=== PATIENT | female | born 1980 | race Caucasian/White ===

== ENCOUNTER 2020-09-06 10:56 | Outpatient (REF) | payer OTHER, SELFPAY ==
--- NOTE | 2020-09-06 09:30 | PAPFT_PTH ---
PATIENT: Gilda Morgan LOC: [facility] U#:[id number] AGE/SX: 39/F ROOM: RE09/06/[address]: Fadia Jones : 1980 BED: DIS: 09/06/2020 SPEC #: [id number] RECD: 09/06/20 18:12 STATUS: RODRIGO REAna #: [id number] JELENA: 09/06/20 09:[address]: Fadia Jones DEPT: [facility] Cytology RECD BY: Vanessa Magallanes ENTERED: 09/06/20 18:12 SP TYPE: PAPFT OTHR DR: Missy Segundo Tissues: 1 - CX/ENDOCX FOR PAP SMEARS Procedures: PAP THIN PREP/UVM Screening HPV DNA PROBE Comments: [id number]
== END 2020-09-06 10:57 | disposition home or self-care (01) ==
LOC: NCHCN 10:56
PROVIDERS: PCP Nurse Practitioner Family; Visit Provider Nurse Practitioner
DX: Z12.4 Encounter for screening for malignant neoplasm of cervix (principal); Z00.00 Encounter for general adult medical examination without abnormal findings; Z11.51 Encounter for screening for human papillomavirus (HPV)
CPT/HCPCS: 88142; 87624

== ENCOUNTER 2022-05-17 08:24 | Outpatient (REF) | payer MEDICAID, SELFPAY ==
[2022-05-17 14:58] LABS: HCT 39.9 % (36.0-46.0); HGB 12.6 g/dL (11.2-15.7); MCH 30.2 pg (27.0-33.0); MCHC 31.6 % (32.0-36.0); MCV 96 fL (80-95); MPV 9.8 fL (8.0-11.0); Platelet Count 269 10^3/uL (130-400); RBC 4.17 10^6/uL (3.93-5.22); RDW 11.6 % (11.7-14.6); RDW-SD 40.9 fL; WBC 7.73 10^3/uL (4.4-10.8)
[2022-05-17 16:11] LABS: Anion Gap 6.6 mmol/L (3-11); BUN 10 mg/dL (7-18); CO2 26.4 mmol/L (21.0-32.0); CREATININE 0.8 mg/dL (0.55-1.02); Calcium 8.9 mg/dL (8.5-10.1); Calculated LDL 92 mg/dL (<100); Chloride 105 mmol/L (98-107); Cholesterol 164 mg/dL (<200); Glucose 89 mg/dL (74-106); HDL Cholesterol 65 mg/dL (40-60); Potassium 4.3 mmol/L (3.5-5.1); Sodium 138 mmol/L (136-145); Triglyceride 38 mg/dL (<150)
== END 2022-05-17 08:25 | disposition home or self-care (01) ==
LOC: NCHCN 08:24
PROVIDERS: PCP Nurse Practitioner Family; Visit Provider Nurse Practitioner Family
DX: Z00.00 Encounter for general adult medical examination without abnormal findings (principal); Z13.220 Encounter for screening for lipoid disorders
CPT/HCPCS: 80048; 80061; 85027

== ENCOUNTER 2024-01-17 16:52 | Outpatient (CLI) | payer MEDICAID, SELFPAY ==
[2024-01-21 09:42] LABS: Anaplasma phagocytophilum Negative (Negative); B. miyamotoi PCR Negative (Negative); Babesia divergens/MO-1 Negative (Negative); Babesia duncani Negative (Negative); Babesia microti Negative (Negative); Ehrlichia chaffeensis Negative (Negative); Ehrlichia ewingii/canis Negative (Negative); Ehrlichia muris eauclairensis Negative (Negative)
== END 2024-01-17 16:53 | disposition home or self-care (01) ==
LOC: LBO 16:52
PROVIDERS: PCP Nurse Practitioner Family; Visit Provider Nurse Practitioner Family
DX: W57.XXXA Bitten or stung by nonvenomous insect and other nonvenomous arthropods, initial encounter (principal); S80.261A Insect bite (nonvenomous), right knee, initial encounter
CPT/HCPCS: 36415; 87798

== ENCOUNTER → 2024-02-04 02:43 | Outpatient (CLI) | payer MEDICAID, SELFPAY ==
--- NOTE | 2024-02-04 | DI.MRI_ITS ---
Exam(s) MR PELVIS WO MR LOWER JOINT RT WO EXAM: MR PELVIS WO CLINICAL HISTORY: Rt hip pain at iliac crest and SI jt rt side with sciatic nerve irritation TECHNIQUE: Multiplanar multisequence MRI of Pelvis was performed COMPARISON: MR MR LOWER JOINT RT WO from 02/04/2024 FINDINGS: Bones: There is no fracture or contusion pattern. No bone marrow edema is seen. Joints: No significant joint effusion or gross labral defect is present. The SI joints and symphysis pubis are well maintained. No abnormal signal within. Musculotendinous structures: Musculotendinous structures demonstrate no abnormality. Intrapelvic structures demonstrate no significant abnormality. IMPRESSION: Normal MRI examination of the pelvis, right hip and sacroiliac joints.. DATA REPOSITORY:
--- NOTE | 2024-02-04 | DI.MRI_ITS ---
Exam(s) MR LUMBAR SPINE WO EXAM: MR LUMBAR SPINE WO CLINICAL HISTORY: Low back pain, M54.50, no improvement 12 weeks PT. TECHNIQUE: Multiplanar multisequence MRI of the Lumbar spine was performed. COMPARISON: No exams were available for comparison FINDINGS: Bones: The last intervertebral disc space is designated the L5/S1 level for the numbering purpose of this ex amination. The vertebral body heights are well maintained. Alignment: Unremarkable. The marrow signal characteristics are unremarkable. Cord: The conus tip ends at the T12 level. It is of normal size and signal intensity. T12-L1: No focal disc herniation is present. No central spinal canal stenosis.No neural foraminal st enosis. L1-2: No focal disc herniation is present. No central spinal canal stenosis.No neural foraminal sten osis. L2-3: No focal disc herniation is present. No central spinal canal stenosis.No neural foraminal quirino nosis. L3-4: No focal disc herniation is present. No central spinal canal stenosis.No neural foraminal quirino nosis. L4-5: No focal disc herniation is present. No central spinal canal stenosis.No neural foraminal sten osis. L5-S1: No focal disc herniation is present. No central spinal canal stenosis.No neural foraminal st enosis. 5 millimeter right-sided nerve root sheath cyst involving the right S1 nerve root. The visualized SI joints and sacrum are unremarkable. Soft tissues: The paraspinal soft tissues are unremarkable. IMPRESSION: 5 millimeter right nerve root sheath cyst at the L5-S1 level. No evidence of disc herniation, significant spinal stenosis or neuroforaminal narrowing. DATA REPOSITORY:
== END ==
PROVIDERS: PCP Nurse Practitioner Family; Visit Provider Nurse Practitioner Family
DX: M53.3 Sacrococcygeal disorders, not elsewhere classified (principal); M54.50 Low back pain, unspecified
CPT/HCPCS: 73721; 72148; 72195

== ENCOUNTER 2025-05-19 11:05 | Outpatient (REF) | payer MEDICAID, SELFPAY ==
[2025-05-19 15:41] LABS: HCT 41.3 % (36.0-46.0); HGB 13.2 g/dL (11.2-15.7); MCH 30.2 pg (27.0-33.0); MCHC 32.0 % (32.0-36.0); MCV 95 fL (80-95); MPV 9.9 fL (8.0-11.0); Platelet Count 251 10^3/uL (130-400); RBC 4.37 10^6/uL (3.93-5.22); RDW 11.5 % (11.7-14.6); RDW-SD 39.8 fL; WBC 8.18 10^3/uL (4.4-10.8)
[2025-05-19 16:48] LABS: ALT 41 U/L (14-59); AST 17 U/L (15-37); Albumin 3.6 g/dL (3.4-5.0); Alkaline Phosphatase 79 U/L (46-116); Anion Gap 7.1 mmol/L (3-11); BUN 14 mg/dL (7-18); Bilirubin, Total 0.3 mg/dL (0.2-1.0); CO2 27.9 mmol/L (21.0-32.0); Calcium 9.1 mg/dL (8.5-10.1); Calculated LDL 132 mg/dL (<100); Chloride 103 mmol/L (98-107); Cholesterol 214 mg/dL (<200); Estimated GFR 112.04 (mL/min/1.73m2); Glucose 68 mg/dL (74-106); HDL Cholesterol 71 mg/dL (>or=50); Potassium 4.6 mmol/L (3.5-5.1); Sodium 138 mmol/L (136-145); Total Protein 7.1 g/dL (6.4-8.2); Triglyceride 57 mg/dL (<150)
[2025-05-19 16:58] LABS: Hemoglobin A1C 5.2 % (<5.7)
[2025-05-20 18:54] LABS: HIV-1/2 Ag & Ab Screen Negative (Negative)
[2025-05-20 19:18] LABS: Hepatitis C Ab w Rflx HCV PCR Negative (Negative)
== END 2025-05-19 11:06 | disposition home or self-care (01) ==
LOC: NCHCN 11:05
DX: Z00.00 Encounter for general adult medical examination without abnormal findings (principal); Z13.6 Encounter for screening for cardiovascular disorders; Z13.1 Encounter for screening for diabetes mellitus
CPT/HCPCS: 80053; 80061; 85027; 86803; 87389; 83036

== ENCOUNTER 2025-05-28 03:59 | Outpatient (CLI) | payer MEDICAID, SELFPAY ==
--- NOTE | 2025-05-28 | DI.MAMMO_ITS ---
Exam(s) MAMMO SCREENING EXAM: MAMMO SCREENING CLINICAL HISTORY: SCREENING, Z12.31. TECHNIQUE: Bilateral full field digital CC and MLO mammographic images were obtained with 3D tomosynthesis and utilizing computer aided detection (CAD). COMPARISON: None. This is a baseline mammogram on a 44-year-old FINDINGS: No CAD designations. No significant left breast findings. There is benign-appearing noncalcified well-defined nodule in the upper outer aspect of the right breast measuring 7 by 5 mm, located 9 cm in from the nipple. This may represent a benign lymph node but there are no previous for comparison. There are no malignant-appearing microcalcification groups in this region or elsewhere in either breast. There is no significant architectural distortion nor skin thickening-retraction. IMPRESSION: 1. Radiographic evidence of malignancy in left breast. 2. 7 x 5 mm nodular density in the upper-outer quadrant of the right breast. Suspect that this may be a benign lymph node but given that there are no previous for comparison recommend follow-up ultrasound BI-RADS Category 0 - Incomplete: Need additional imaging evaluation Breast Density - Category B - There are scattered areas of fibroglandular density. Breast density Category C or D implies that the patient has dense breast tissue. Dense breast tissue can make it harder to find cancer on a mammogram. Dense breast tissue is also associated with an increased risk of breast cancer. This information about the result of the mammogram report was provided to the patient to raise their awareness. Use this report when you speak with the patient about their risks for breast cancer, which includes their family history. At that time, you may recommend additional screening tests (Ultrasound or MRI) as these tests may add significant information. A negative radiographic report should not delay biopsy if a dominant or clinically suspicious mass is present. Up to ten percent of cancers are not identified on mammography. A negative report may reinforce clinical impression. Adenosis and dense breasts may obscure an underlying neoplasm. False positive reports average 6 to 10%. Patient will receive a letter notifying them of these results.
== END 2025-05-28 04:19 ==
DX: Z12.31 Encounter for screening mammogram for malignant neoplasm of breast (principal)
CPT/HCPCS: 77063; 77067

== ENCOUNTER → 2025-06-02 00:53 | Outpatient (CLI) | payer MEDICAID, SELFPAY ==
--- NOTE | 2025-06-02 10:00 | DI.US_ITS ---
Exam(s) US BREAST RT LIMITED EXAM: US BREAST RT LIMITED CLINICAL HISTORY: F/U MAMMO, R92.8,NODULAR DENSITY UPPER OUTER QUADRANT RT BREAST,? LYMPH TECHNIQUE: Ultrasound right breast performed using standard protocol. COMPARISON: [facility] MAMMO SCREENING from 05/28/2025 FINDINGS: There is a well-circumscribed 0.7 x 0.2 x 0.3 cm hypoechoic nodule at the bryant o'clock position of the right breast 8 cm from the nipple. It has an echogenic eccentric focus and is most consistent sonographically with a in lymph node. This corresponds to the mammographic abnormality. IMPRESSION: 1. No sonographically suspicious finding. 2. Yearly mammography is recommended according to the ACR guidelines. 3. Findings were discussed with the patient on the date of the examination. BI-RADS Category 2 - Benign Findings DATA REPOSITORY:
== END ==
LOC: DI 00:53
DX: N63.11 Unspecified lump in the right breast, upper outer quadrant (principal)
CPT/HCPCS: 76642